=== PATIENT | female | born 2000 | race Asian ===

== ENCOUNTER 2021-03-27 12:40 | Emergency (ER) | payer OTHER, SELFPAY ==
[2021-03-27 13:01] VITALS: BP 155/102; PULSE 95; RESP 18; TEMP 36.8; O2SAT 97; BMI 30.9
--- NOTE | 2021-03-27 17:48 | ED_ITS ---
HPI - Extremity Injury (Upper) General Chief Complaint: Extremity Injury, Upper Stated Complaint: Cat Bite on Rt Middle Finger, Won't Stop Bleeding Time Seen by Provider: 03/27/21 17:47 Source: patient Mode of arrival: Ambulatory Limitations: no limitations History of Present Illness HPI narrative: this is a 20-year-old female who comes emergency department with complaint of swelling, pain and drainage from her finger for the past week. Patient states a week ago she had a bite to her middle finger by her new cat. She states the cat is up-to-date on its immunizations. She has had increasing swelling and discomfort as well as drainage which she described initially as bleeding. Patient states that her tetanus is up-to-date. She denies any medications regularly other than occasional medications for anxiety/ depression. Patient states she was elected to come to the emergency department she thought this was a minor injury. Patient denies any fevers. She has had increasing swelling, pain and discomfort Which finally prompted her to come to be seen. She does have a ring on that finger and has been unable to remove it. Related Data Previous Rx's Medication Instructions Recorded amoxicillin-pot clavulanate 1 tab PO Q12H #20 tab 03/27/21 [Augmentin] Allergies Allergy/AdvReac Type Severity Reaction Status Date / Time No Known Drug Allergies Allergy Verified 03/27/21 17:59 Review of Systems Review of Systems ROS Unobtainable: All systems reviewed & are unremarkable except as noted in HPI and below Patient History Social History Smoking Status: Never smoker Smoking Status: Never smoker alcohol intake frequency: holidays/special occasions only Substance Use Type: does not use Exam Narrative Exam Narrative: GENERAL: Alert and oriented x three, Well-nourished female in mild distress. HEENT: Head normocephalic, atraumatic, EOMI, pupils reactive, face symmetric, moist mucous membranes NECK: Supple, full range of motion CARDIOVASCULAR: Regular rate and rhythm without murmurs, rubs or gallops. RESPIRATORY: Breath sounds equal bilaterally, no wheezes rales or rhonchi. ABDOMEN: Soft, nontender. Normoactive bowel sounds all 4 quadrants. No guarding or rebound, rigidity, no mass EXTREMITIES: Patient has mild to moderate swelling of the middle right finger, there are several small puncture wounds and abrasions and the distal and the skin along the edge of the nail has opened and is draining small amount of purulent fluid and intermittently serosanguineous. Patient can flex and extend somewhat but it is uncomfortable. I cannot elicit pain down into her palm. Patient has cap refill less than 2 seconds with sensation throughout. She did have her being removed here in the department and her finger is eurovascularly intact NEUROLOGICAL: Cranial nerves II through XII grossly intact. Moving all extremities SKIN: Warm, dry, no petechiae, no rashes or lesions other than noted above. Initial Vital Signs Initial Vital Signs: Vital Signs Temperature 98.2 F 03/27/21 13:01 Pulse Rate 95 H 03/27/21 13:01 Respiratory Rate 18 03/27/21 13:01 Blood Pressure 155/102 H 03/27/21 13:01 Pulse Oximetry 97 03/27/21 13:01 Course Orders Ordered: ED Orders 03/27/21 18:24 Wound Culture and Gram Stain Stat Discontinued Medications Amoxicillin/Clavulanate Potassium (Amoxicillin/Clav 875/125 Mg) 1 tab PO NOW ONE Stop: 03/27/21 17:57 Last Admin: 03/27/21 18:04 Dose: 1 tab Documented by: ATAYLOR Oxycodone HCl (Oxycodone Ir 5 Mg Tablet) 5 mg PO NOW ONE Stop: 03/27/21 17:57 Last Admin: 03/27/21 18:04 Dose: 5 mg Documented by: ATAYLOR Vital Signs Vital signs: Vital Signs - 8 hr 03/27/21 13:01 03/27/21 18:28 Temperature 98.2 F Pulse Rate 95 H 76 Respiratory Rate 18 16 Blood Pressure 155/102 H 124/73 Pulse Oximetry 97 MDM - Extremity Injury (Upper) MDM Narrative Medical decision making narrative: this is a 20-year-old female who cat bite to her right finger proximally week ago with increasing swelling, discharge and discomfort. Patient has a small amount of purulent drainage. There does not appear to be a clear area of fluctuance. Patient was started on oral antibiotics, her ring was removed and patient was asked to return in 24 hours for recheck. Patient was given strict return precautions and we discussed that there she is at risk for infection in the deeper portion her hand and if she has worsening symptoms she needs to return promptly for IV antibiotics and potentially surgery. Discharge Plan Departure Patient Disposition: Home Clinical Impression: Infected cat bite of finger Instructions: DI for Cat Bite Activity Restrictions/Additional Instructions: Follow up for recheck in 24 hours, you may return here for recheck. Cat bites can get easily infected and can cause severe infections in the deep part of the hand if you are not improving or you are worsening you need to return. Take antibiotics until completely gone. Prescription to [facility]. You may take tylenol up to a 1000 mg every 8 hours and or ibuprofen up to 800 mg every 8 hours as needed for pain. Wound Care: Keep wound(s) clean and dry. Wash daily with soap and water only. Do not use over the counter products (alcohol or peroxide)on the wounds unless instructed by a physician. If wound condition worsens (increased/expanding redness, developing fluid blisters, or worsening pain), either contact your doctor for an urgent re- assessment , or return to the Emergency Department. Return to the Emergency Department for any new or worsening symptoms. Return to the ED, urgent care, or vist a primary care doctor for removal or suture or naren Return if fever greater than 100.4 Fahrenheit, increased swelling, increasing pain or worsening symptoms such as increased discharge or spreading redness, If you having increasing pain along the bottom of her hand, redness or swelling of the hand, numbness, tingling or any other new or concerning symptoms. Prescriptions: New amoxicillin-pot clavulanate [Augmentin] 875-125 mg tablet 1 tab PO Q12H Qty: 20 RF: 0
[2021-03-27] MEDS: AMOXICILLIN/CLAV 875/125 MG 1 TAB PO (18:04)
[2021-03-27] MEDS: OXYCODONE IR 5 MG TABLET PO (18:04)
[2021-03-27 18:28] VITALS: BP 124/73; PULSE 76; RESP 16
== END 2021-03-27 18:29 | disposition home or self-care (01) ==
PROVIDERS: Emergency Provider Emergency Medicine
DX: S61.252A Open bite of right middle finger without damage to nail, initial encounter (principal); B96.89 Other specified bacterial agents as the cause of diseases classified elsewhere; W55.01XA Bitten by cat, initial encounter
CPT/HCPCS: 87070; 87075; 87077; 87186; 87205; 99283

== ENCOUNTER → 2021-04-24 15:02 | Outpatient (CLI) | payer OTHER, SELFPAY ==
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
== END ==
PROVIDERS: Referring Provider Physician Assistant; Visit Provider Physician Assistant
DX: M54.89 Other dorsalgia (principal); S06.0X0A Concussion without loss of consciousness, initial encounter; V87.7XXA Person injured in collision between other specified motor vehicles (traffic), initial encounter
CPT/HCPCS: 72072; 72100

== ENCOUNTER → 2021-05-12 17:14 | Outpatient (CLI) | payer OTHER, SELFPAY ==
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
== END ==
PROVIDERS: Referring Provider Chiropractor; Visit Provider Chiropractor
DX: S13.4XXA Sprain of ligaments of cervical spine, initial encounter (principal); S23.3XXA Sprain of ligaments of thoracic spine, initial encounter; S33.5XXA Sprain of ligaments of lumbar spine, initial encounter; G44.1 Vascular headache, not elsewhere classified; V89.2XXA Person injured in unspecified motor-vehicle accident, traffic, initial encounter
CPT/HCPCS: 72040; 72070; 72110